=== PATIENT | female | born 1990 | race Caucasian/White ===

== ENCOUNTER 2016-10-18 19:54 | Emergency (ER) | payer OTHER ==
--- NOTE | ~2016-10-18 | CR63 ---
[facility]. [facility] A Service of [facility] RADIOLOGY TEXT RESULTS PATIENT: FILI ESCOTO LOCATION: SED : [birth year] UNIT #: [id number] AGE: [address]: SONALI DESAI PA-C SEX: F ORDER DR: [id number] [address] [address] [id number] E MR#: [id number] Acc #: [id number] NAME: FILI ESCOTO. : 1990 SEX: F STUDY DATE/TIME: 10/18/2016 21:02 UNIT: SED ROOM: STUDY DESCRIPTION: CR Chest 2 View Attending Physician: Sonali Desai Pa-C Ordering Physician: Physician Non-Staff Primary Care Physician: Primary Care Physician No MEDICAL IMAGING REPORT This report is preliminary unless electronic signature is present. EXAM Two view chest. HISTORY Alcohol and drug rehab for 3 months. Abdominal pain that shoots up into the chest for a week. COMMENTS 2 views of the chest reviewed. No prior. FINDINGS Heart size is normal. There is no pleural effusion or pneumothorax. No acute-appearing parenchymal infiltrate or acute congestive failure. Mild prominence of interstitial markings is nonspecific. IMPRESSION Mild nonspecific prominence of interstitial markings otherwise no active disease. Dictated by... Zoya Callahan M.D. THIS IS AN ELECTRONICALLY VERIFIED REPORT Zoya Callahan M.D. at 10/19/2016 12:20 PM MARGOT/sabra TD: 10/19/2016 12:03 JOB #: [id number] MEDICAL IMAGING REPORT Page 1 of 1
--- NOTE | ~2016-10-18 | CT2 ---
[facility] A Service of [facility] RADIOLOGY TEXT RESULTS PATIENT: FILI ESCOTO LOCATION: SED : [birth year] UNIT #: [id number] AGE: [address]: SONALI DESAI PA-C SEX: F ORDER DR: [id number] [address] [address] [id number] E MR#: [id number] Acc #: [id number] NAME: FILI ESCOTO. : 1990 SEX: F STUDY DATE/TIME: 10/18/2016 21:00 UNIT: SED ROOM: STUDY DESCRIPTION: CT Abd and Pelv W Cont Attending Physician: Sonali Desai Pa-C Ordering Physician: Physician Non-Staff Primary Care Physician: No Primary Care Physician MEDICAL IMAGING REPORT This report is preliminary unless electronic signature is present. EXAM CT abdomen and pelvis 10/18/2016. HISTORY Abdomen pain that shoots up into chest. 1 week onset. Alcohol, drug rehab times 3 months. Prior hernia. TECHNIQUE CT abdomen and pelvis performed with intravenous administration of 100 mL Isovue-370. Enteric contrast not administered. Study limited in the absence of enteric contrast. This CT exam was performed with one or more of the following radiation dose reduction techniques: automatic exposure control, adjustment of mA and/or kV according to patient size, and iterative reconstruction. COMPARISON No comparisons. FINDINGS Comparison to prior studies recommended. No acute pulmonary disease at lung bases. Inferior heart and pericardium unremarkable. Liver somewhat low in overall density. Nonspecific finding on contrast-enhanced examination, but concerning for diffuse fatty infiltration of the liver. Gallbladder is small in volume with no inflammatory change or gallstones seen. There is no biliary ductal dilatation. The spleen, pancreas, adrenal glands unremarkable. Kidneys unremarkable. CT Pelvis: No inguinal adenopathy. The uterus is notable for presence of an intrauterine device. There is generalized haziness in the mid to inferior pelvic fat. There may be a small amount of free fluid, but there is certainly no drainable fluid collection. The adnexal regions are somewhat ill-defined. Probable small follicular ovarian cysts [facility] A Service of [facility] RADIOLOGY TEXT RESULTS PATIENT: FILI ESCOTO [place] [facility] [birth year] UNIT #: [id number] AGE: [address]: SONALI DESAI PA-C SEX: F ORDER DR: bilaterally. There appears to be a collapsed or collapsing rim-enhancing right ovarian cyst measuring about 1.2 cm in diameter. Probably the dominant follicle for this menstrual cycle. I see no dilated tubular structure to suggest dilated fallopian tube. The generalized haziness and stranding in the adnexal fat might be physiologic in nature and related to the patient's menstrual cycle and follicular cyst rupture. The possibility of infectious inflammatory change not excluded. Correlate with exam. There is no drainable fluid collection. I see no localized mass lesion. Pelvic structures could be further evaluated with pelvic ultrasound if clinically warranted. There is no pelvic or retroperitoneal adenopathy. Distal esophagus, stomach, small bowel unremarkable. Appendix normal. Colon unremarkable. Vascular structures unremarkable. No acute-appearing bony abnormality. IMPRESSION 1. Predominant abnormality is in the pelvis. There is generalized haziness and stranding in the adnexal fat. There is no drainable fluid collection, though there may be a trace amount of free fluid present. Follicular ovarian cyst suggested bilaterally with a crenelated rim-enhancing 1.2 cm structure in the right adnexa/ovary favored to represent a ruptured right ovarian cyst. The appearance of the haziness and stranding in the adnexal fat could be physiologic in nature and related to the patient's menstrual cycle and ovarian cyst rupture. The possibility of infectious or inflammatory etiology is not excluded. Correlate with the patient's clinical examination. Consider pelvic ultrasound for further characterization of findings. Again there is no drainable fluid collection suggested. I see no clear indication of fallopian tube dilatation or adnexal abscess. 2. Intrauterine device appears normally positioned. 3. Gallbladder, pancreas, appendix unremarkable. Kidneys unremarkable. 4. Fatty infiltration of the liver. No suspicious focal abnormality. See remainder of incidental findings in body of report above. Dictated by... Amadou Mejia M.D. THIS IS AN ELECTRONICALLY VERIFIED REPORT Amadou Mejia M.D. at 10/19/2016 2:18 PM LULU/nani TD: 10/19/2016 13:02 JOB #: [id number] MEDICAL IMAGING REPORT Page 1 of 1
--- NOTE | ~2016-10-18 | EKG ---
PATIENT: FILI ESCOTO UNIT #: [id number] Ventricular Rate: 73 BPM Atrial Rate: 73 BPM P-R Interval: 146 ms QRS Duration: 86 ms Q-T Interval: 374 ms QTC Calculation(Bezet): 412 ms P Hadley: 65 degrees Calculated R Hadley: 64 degrees Calculated T Hadley: 27 degrees Diagnosis Line: Normal sinus rhythm with sinus arrhythmia Diagnosis Line: Normal ECG Diagnosis Line: When compared with ECG of 31-JUL-2016 23:23, Diagnosis Line: Nonspecific T wave abnormality now evident in Diagnosis Line: Anterior leads Diagnosis Line: Confirmed by NELSON PFEIFFER MD ([id number]) on 10/24/2016 Diagnosis Line: 11:09:27 PM INTERPRETING MD: KENTRELL DURHAM
[~2016-10-18 19:54] MED LIST: BENTYL20 M1; BIRTH CONTROL PILL PO; NO MEDICATIONS; OMEPRAZOLE40 M1; ZOFRAN ODT4 MG
[2016-10-18 20:35] LABS: URINE SOURCE CLEAN CATCH
[2016-10-18 20:37] LABS: BASOPHIL# 0.1 X10e3 (0-0.3); BASOPHIL% 0.6 % (0-2.5); EOSINOPHIL# 0.2 X10e3 (0-0.7); EOSINOPHIL% 1.6 % (0.0-7.0); HEMATOCRIT 40.9 % (35.0-45.0); HEMOGLOBIN 13.4 gm/dL (12.0-16.0); LYMPHOCYTE# 2.8 X10e3 (1.0-3.5); LYMPHOCYTE% 30.2 % (17.0-45.0); MEAN CORPUSCULAR HEMOGLOBIN 29.5 PG (28-34); MEAN CORPUSCULAR HGB CONC 32.8 g/dL (30-36); MEAN PLATELET VOLUME 10.4 FL (6.5-11.5); MONOCYTE# 0.7 X10e3 (0-1.0); MONOCYTE% 7.3 % (3.0-12.0); NEUTROPHIL# 5.6 X10e3 (1.5-7.1); NEUTROPHIL% 60.3 % (40-75); PLATELET COUNT 138 X10e3 (140-420); RED BLOOD COUNT 4.54 X10e (3.90-5.30); RED CELL DISTRIBUTION WIDTH 13.9 % (11.0-15.5); WHITE BLOOD COUNT 9.4 X10e3 (4.0-10.5)
[2016-10-18 20:38] LABS: URINE APPEARANCE CLEAR; URINE BILIRUBIN NEG (NEG); URINE BLOOD NEG (NEG); URINE COLOR YELLOW; URINE GLUCOSE NEG (NORM); URINE KETONE NEG (NEG); URINE LEUKOCYTE ESTERASE TRACE (NEG); URINE NITRATE NEG (NEG); URINE PROTEIN NEG (NEG); URINE UROBILINOGEN 0.2 MG/DL (NORM)
[2016-10-18 20:40] LABS: MICRO INDICATED? YES
[2016-10-18 20:40] LABS: DIFF IND NO
[2016-10-18 20:42] LABS: CULTURE INDICATED? YES; URINE BACTERIA 1+ (NEG); URINE MUCUS PRESENT; URINE SQUAMOUS EPITHELIAL CELL OCCAS /[HPF]; URINE TRANSITIONAL EPI CELLS FEW /[HPF]
[2016-10-18 20:54] LABS: ALBUMIN SERUM 4.1 g/dL (3.5-5.0); ALKALINE PHOSPHATASE 64 U/L (32-92); ALT (SGPT) 11 U/L (10-40); AST (SGOT) 18 U/L (10-42); BILIRUBIN, DIRECT 0.1 mg/dL (0.0-0.2); BILIRUBIN,INDIRECT 0.5 mg/dL (0.0-0.9); BILIRUBIN,TOTAL 0.6 mg/dL (0.2-2.0); BLOOD UREA NITROGEN 16 mg/dL (9-23); BUN/CREATININE RATIO 22.85; CARBON DIOXIDE 29 mmol/L (22-31); CHLORIDE 103 mmol/L (100-111); CREATININE SERUM 0.7 mg/dL (0.6-1.4); GLOM FILT RATE Estimated ABOVE60 mL/min (>60); GLUCOSE FASTING 91 mg/dL (70-110); LIPASE 28 U/L (22-51); POTASSIUM 3.7 mmol/L (3.5-5.1); PROTEIN TOTAL SERUM 7.1 g/dL (6.0-8.3); SODIUM 138 mmol/L (135-145)
[2016-10-21 02:27] LABS: CHLAMYDIA TRACH Not Detected (Not Detected); N GONOR Not Detected (Not Detected)
== END 2016-10-19 00:21 | disposition home or self-care (01) ==
LOC: SED 19:54
PROVIDERS: Physician Assistant
DX: N76.0 Acute vaginitis (principal); N83.209 Unspecified ovarian cyst, unspecified side; F17.210 Nicotine dependence, cigarettes, uncomplicated
CPT/HCPCS: 36415; 71020; 74177; 80048; 80076; 81003; 83690; 84703; 85025; 87086; 87210; 87491; 87591; 87808; 87905; 93005; 99284; Q9967

== ENCOUNTER 2016-12-02 15:40 | Emergency (ER) | payer OTHER | END 2016-12-02 16:11 | disposition home or self-care (01) | LOC: SED 15:40 | DX: K04.7 Periapical abscess without sinus (principal); F17.210 Nicotine dependence, cigarettes, uncomplicated | CPT/HCPCS: 41800; 99283 ==

== ENCOUNTER 2016-12-11 21:19 | Emergency (ER) | payer OTHER | END 2016-12-11 22:48 | disposition home or self-care (01) | LOC: SED 21:19 | DX: K05.219 Aggressive periodontitis, localized, unspecified severity (principal); R03.0 Elevated blood-pressure reading, without diagnosis of hypertension; F17.210 Nicotine dependence, cigarettes, uncomplicated | CPT/HCPCS: 99282 ==